=== PATIENT | female | born 1950 | race Caucasian/White ===

== ENCOUNTER 2016-07-27 17:16 | Emergency (ER) | payer BC ==
[~2016-07-27] VITALS: Ht 160 cm; Wt 97.7 kg
[~2016-07-27 17:16] MED LIST: DARV100T; FERR325T; FOLI1TAB; HUMARA; LEVO25TA2; MOBIC; PERC5TAB8; QUINAPRIL/HCTZ; VITAMIN D50000 UNT; ZOLOFT
[2016-07-27 17:17] VITALS: BP 98/60
[2016-07-27] MEDS ORDERED: LEVO50TA5 PO (17:30)
[2016-07-27] MEDS ORDERED: BUPR150T5 PO (17:30)
[2016-07-27] MEDS ORDERED: QUIN20TA PO (17:30)
[2016-07-27] MEDS ORDERED: BISO2.5T PO (17:30)
[2016-07-27] MEDS ORDERED: VITA100041 PO (17:30)
[2016-07-27] MEDS ORDERED: ZOLO100T PO (17:30)
[2016-07-27] MEDS ORDERED: HYDR-3713 PO (17:30)
[2016-07-27] MEDS ORDERED: INDO50CA PO (18:42)
[2016-07-27] MEDS ORDERED: PRED10TA PO (18:42)
[2016-07-27] MEDS ORDERED: predniSONE 20 MG TAB PO ONE (18:45)
[2016-07-27] MEDS ORDERED: INDOMETHACIN 25 MG CAP PO ONE (18:45)
== END 2016-07-27 19:18 | disposition home or self-care (01) ==
LOC: M ED 19:11
DX: M25.511 Pain in right shoulder (principal); G89.29 Other chronic pain; E03.9 Hypothyroidism, unspecified; Z79.899 Other long term (current) drug therapy; Z88.2 Allergy status to sulfonamides

== ENCOUNTER 2017-12-05 16:01 | Inpatient (IN) | payer OTHER, BC ==
[2017-12-05] MEDS ORDERED: ISOVUE-370 76% 100ML VIAL (Q9967) As Ordered (17:59)
[2017-12-05] MEDS: ONDANSETRON 4MG/2ML VIAL (J2405) IV ×2 (18:00→18:17)
[2017-12-05 18:03] LABS: BASO % 0.3 % (0.0-1.0); EOS # 0.1 10^3/uL (0.0-0.50); EOS % 0.6 % (0.0-3.0); HEMATOCRIT 37.3 % (36.0-47.0); HEMOGLOBIN 12.2 g/dl (12.0-15.5); IMMATURE GRANULOCYTE % 0.6 % (0-3.0); LYMPH # 3.5 10^3/uL (1.5-4.5); LYMPH % 22.1 % (24.0-44.0); MEAN CORPUSCULAR HEMOGLOBIN 32.4 pg (27.0-33.0); MEAN CORPUSCULAR HGB CONC 32.7 g/dl (32.0-36.5); MEAN CORPUSCULAR VOLUME 98.9 fl (80.0-96.0); MONO # 1.3 10^3/uL (0.0-0.8); MONO % 8.4 % (0.0-5.0); NEUTROPHILS # 10.8 10^3/uL (1.8-7.7); PLATELET COUNT, AUTOMATED 291 10^3/uL (150-450); RED BLOOD COUNT 3.77 10^6/uL (4.00-5.40); RED CELL DISTRIBUTION WIDTH 14.7 % (11.5-14.5); WHITE BLOOD COUNT 15.8 10^3/uL (4.0-10.0)
[2017-12-05 18:15] LABS: INR 0.94; PROTHROMBIN TIME 12.7 SECONDS (12.1-14.4)
[2017-12-05] MEDS ORDERED: MORPHINE 2 MG/ML 1ML SYRINGE (J2270) IV (18:15)
[2017-12-05 18:16] LABS: PARTIAL THROMBOPLASTIN TIME 26.3 SECONDS (25.4-37.6)
[2017-12-05] MEDS: MORPHINE 4 MG/ML 1ML VIAL/SYRINGE (J2270) IV (18:18)
[2017-12-05] MEDS: MORPHINE 2 MG/ML 1ML SYRINGE (J2270) IV (18:25)
[2017-12-05] MEDS: NS 1,000 ML IV (18:25)
[2017-12-05 18:27] LABS: ABG BASE EXCESS -3.1 (-2.0-2.0); ABG O2 SATURATION 92.1 % (95.0-99.0); ABG PARTIAL PRESSURE CO2 39.5 mmHg (35.0-45.0); ABG PARTIAL PRESSURE O2 66.8 mmHg (75.0-100.0); ABG STANDARD HCO3 21.8 MEQ/L (22.0-26.0); ABG TOTAL CO2 23.2 MEQ/L (23.0-31.0); ABG pH (ARTERIAL) 7.364 UNITS (7.350-7.450); ALBUMIN 4.3 GM/DL (3.2-5.2); ALKALINE PHOSPHATASE 110 U/L (45-117); ALT/SGPT 45 U/L (12-78); AMYLASE 20 U/L (25-115); ANION GAP 10 MEQ/L (8-16); AST/SGOT 25 U/L (7-37); BILIRUBIN,DIRECT 0.2 MG/DL (0.0-0.2); BILIRUBIN,TOTAL 0.5 MG/DL (0.2-1.0); BLOOD UREA NITROGEN 30 MG/DL (7-18); CALCIUM LEVEL 9.3 MG/DL (8.8-10.2); CARBON DIOXIDE LEVEL 26 MEQ/L (21-32); CHLORIDE LEVEL 101 MEQ/L (98-107); CPK CREATINE PHOSPHOKINASE 122 U/L (26-192); CREATININE FOR GFR 1.41 MG/DL (0.55-1.30); GLOMERULAR FILTRATION RATE 39.6 (>45); GLUCOSE, FASTING 130 MG/DL (70-100); LIPASE 70 U/L (73-393); MB/CK RELATIVE INDEX 1.56 (< OR =4); POTASSIUM SERUM 3.8 MEQ/L (3.5-5.1); SODIUM LEVEL 137 MEQ/L (136-145); TOTAL PROTEIN 8.2 GM/DL (6.4-8.2); TROPONIN I < 0.02 NG/ML (< 0.10)
[2017-12-05 18:50] LABS: LACTIC ACID SEPSIS PROTOCOL 1.4 MMOL/L (0.4-2.0)
[2017-12-05] MEDS ORDERED: LIDOCAINE 1% MDV 20ML VIAL As Ordered (19:05)
[2017-12-05] MEDS ORDERED: FLUMAZENIL 0.5 MG/5 ML VIAL As Ordered (19:05)
[2017-12-05] MEDS ORDERED: MIDAZOLAM INJ 2 MG/2 ML VIAL (J2250) As Ordered ×3 (19:06)
[2017-12-05] MEDS: MIDAZOLAM INJ 2 MG/2 ML VIAL (J2250) IV ×2 (19:15→19:17)
[2017-12-05] MEDS: KCL 20MEQ IN D5/NS 1000ML 1,000 ML IV ×2 (19:31→20:00)
[2017-12-05] MEDS ORDERED: LEVALBUTEROL 1.25 MG/0.5 ML CONCENTRATE NEB NEB (19:45)
[2017-12-05] MEDS ORDERED: ACETAMINOPHEN TAB 650MG DOSE (2X325MG) PO (19:45)
[2017-12-05] MEDS ORDERED: ONDANSETRON 4MG/2ML VIAL (J2405) IV (19:45)
[2017-12-05] MEDS ORDERED: BISACODYL 10 MG SUPP PR (19:45)
[2017-12-05] MEDS: HEPARIN SOD (PORCINE) 5000 UNITS/ML VIAL SC (20:45)
[2017-12-05] MEDS: PERCOCET 5MG/325MG TAB PO (20:46)
[2017-12-05] MEDS: DOCUSATE SODIUM 100 MG CAP PO (20:55)
[2017-12-05] MEDS: GABAPENTIN 100 MG CAP PO (21:52)
[2017-12-05] MEDS: buPROPion **SR TABLET** (ZYBAN) 150MG PO (21:52)
[2017-12-05] MEDS: LEVALBUTEROL 1.25 MG/0.5 ML CONCENTRATE NEB NEB (21:56)
[2017-12-06] MEDS: PERCOCET 5MG/325MG TAB PO ×6 (00:35→20:29)
[2017-12-06] MEDS: LEVALBUTEROL 1.25 MG/0.5 ML CONCENTRATE NEB NEB ×4 (02:00→19:53)
[2017-12-06 04:16] LABS: BASO % 0.3 % (0.0-1.0); EOS # 0.1 10^3/uL (0.0-0.50); EOS % 1.5 % (0.0-3.0); HEMATOCRIT 31.8 % (36.0-47.0); HEMOGLOBIN 10.4 g/dl (12.0-15.5); IMMATURE GRANULOCYTE % 0.5 % (0-3.0); LYMPH # 2.6 10^3/uL (1.5-4.5); LYMPH % 29.6 % (24.0-44.0); MEAN CORPUSCULAR HEMOGLOBIN 32.1 pg (27.0-33.0); MEAN CORPUSCULAR HGB CONC 32.7 g/dl (32.0-36.5); MEAN CORPUSCULAR VOLUME 98.1 fl (80.0-96.0); MONO # 0.8 10^3/uL (0.0-0.8); MONO % 9.4 % (0.0-5.0); NEUTROPHILS # 5.2 10^3/uL (1.8-7.7); NEUTROPHILS % 58.7 % (36.0-66.0); PLATELET COUNT, AUTOMATED 211 10^3/uL (150-450); RED BLOOD COUNT 3.24 10^6/uL (4.00-5.40); RED CELL DISTRIBUTION WIDTH 14.5 % (11.5-14.5); WHITE BLOOD COUNT 8.8 10^3/uL (4.0-10.0)
[2017-12-06 04:38] LABS: ANION GAP 9 MEQ/L (8-16); BLOOD UREA NITROGEN 22 MG/DL (7-18); CALCIUM LEVEL 8.5 MG/DL (8.8-10.2); CARBON DIOXIDE LEVEL 26 MEQ/L (21-32); CHLORIDE LEVEL 104 MEQ/L (98-107); CREATININE FOR GFR 0.95 MG/DL (0.55-1.30); GLOMERULAR FILTRATION RATE > 60.0 (>45); GLUCOSE, FASTING 124 MG/DL (70-100); POTASSIUM SERUM 3.2 MEQ/L (3.5-5.1); SODIUM LEVEL 139 MEQ/L (136-145)
[2017-12-06] MEDS: LEVOTHYROXINE 50MCG TABLET (0.05MG) PO (05:06)
[2017-12-06 05:54] LABS: ABG BASE EXCESS 1.4 (-2.0-2.0); ABG HCO3 26.7 MEQ/L (22.0-26.0); ABG O2 SATURATION 97.1 % (95.0-99.0); ABG PARTIAL PRESSURE CO2 45.5 mmHg (35.0-45.0); ABG STANDARD HCO3 25.7 MEQ/L (22.0-26.0); ABG TOTAL CO2 28.1 MEQ/L (23.0-31.0); ABG pH (ARTERIAL) 7.387 UNITS (7.350-7.450)
[2017-12-06] MEDS: PANTOPRAZOLE 40MG TAB (PROTONIX) PO (08:27)
[2017-12-06] MEDS: ATORVASTATIN 10 MG TAB PO (08:27)
[2017-12-06] MEDS: DOCUSATE SODIUM 100 MG CAP PO ×2 (08:29→20:27)
[2017-12-06] MEDS: buPROPion **SR TABLET** (ZYBAN) 150MG PO ×2 (08:30→20:27)
[2017-12-06] MEDS: HEPARIN SOD (PORCINE) 5000 UNITS/ML VIAL SC ×2 (08:30→20:28)
[2017-12-06] MEDS: MOM 30ML SUSPENSION UDC PO (08:30)
[2017-12-06] MEDS: GABAPENTIN 100 MG CAP PO ×3 (08:30→20:27)
[2017-12-06] MEDS: BISOPROLOL FUM 2.5 MG PER 1/2TAB PO (08:30)
[2017-12-06] MEDS: VITAMIN D 1,000 INTERNATIONAL UNITS TABLET PO (08:30)
[2017-12-06] MEDS: KCL 20MEQ IN D5/NS 1000ML 1,000 ML IV (09:20)
[2017-12-06] MEDS: NORCO, ANEXSIA 5/325MG TABLET (HYDROcodone/ACETAMINOPHEN) PO ×3 (11:11→18:03)
[2017-12-06] MEDS: KETOROLAC 30 MG/ML VIAL (J1885) IV ×3 (11:15→22:47)
[2017-12-06] MEDS: POTASSIUM CHLORIDE 10 MEQ SR TABLET PO ×3 (13:40→20:28)
[2017-12-06] MEDS: HYDROCHLOROthiazide 6.25MG PER 1/4TAB PO (13:40)
[2017-12-06 16:15] LABS: APPEARANCE, URINE CLEAR (CLEAR); BACTERIA, URINE AUTO NEGATIVE (NEGATIVE); BILIRUBIN, URINE AUTO NEGATIVE (NEGATIVE); BLOOD, URINE BLOOD NEGATIVE (NEGATIVE); COLOR, URINE YELLOW (YELLOW); GLUCOSE, URINE (UA) AUTO NEGATIVE (NEGATIVE); KETONE, URINE AUTO NEGATIVE (NEGATIVE); LEUKOCYTE ESTERASE, URINE AUTO NEGATIVE (NEGATIVE); NITRITE, URINE AUTO NEGATIVE (NEGATIVE); PROTEIN, URINE AUTO NEGATIVE (NEGATIVE); RBC, URINE AUTO 0 /HPF (0-3); SPECIFIC GRAVITY URINE AUTO 1.025 (1.002-1.035); SQUAMOUS EPITHELIAL CELL UR AU 0 /HPF (0-6); UROBILINOGEN, URINE AUTO 0.2 mg/dL (0.0-2.0); WBC, URINE AUTO 1 /HPF (0-3)
[2017-12-07] MEDS: LEVALBUTEROL 1.25 MG/0.5 ML CONCENTRATE NEB NEB ×4 (01:18→20:00)
[2017-12-07] MEDS: LEVOTHYROXINE 50MCG TABLET (0.05MG) PO (05:07)
[2017-12-07] MEDS: KETOROLAC 30 MG/ML VIAL (J1885) IV (05:08)
[2017-12-07] MEDS: PERCOCET 5MG/325MG TAB PO ×6 (05:08→21:50)
[2017-12-07 05:27] LABS: BASO # 0.1 10^3/uL (0.0-0.2); BASO % 0.4 % (0.0-1.0); EOS # 0.2 10^3/uL (0.0-0.50); EOS % 1.9 % (0.0-3.0); HEMATOCRIT 34.7 % (36.0-47.0); HEMOGLOBIN 10.6 g/dl (12.0-15.5); IMMATURE GRANULOCYTE % 0.4 % (0-3.0); LYMPH # 2.3 10^3/uL (1.5-4.5); LYMPH % 19.4 % (24.0-44.0); MEAN CORPUSCULAR HEMOGLOBIN 32.4 pg (27.0-33.0); MEAN CORPUSCULAR HGB CONC 30.5 g/dl (32.0-36.5); MEAN CORPUSCULAR VOLUME 106.1 fl (80.0-96.0); MONO # 1.3 10^3/uL (0.0-0.8); MONO % 10.9 % (0.0-5.0); NEUTROPHILS # 7.9 10^3/uL (1.8-7.7); PLATELET COUNT, AUTOMATED 186 10^3/uL (150-450); RED BLOOD COUNT 3.27 10^6/uL (4.00-5.40); RED CELL DISTRIBUTION WIDTH 14.7 % (11.5-14.5); WHITE BLOOD COUNT 11.8 10^3/uL (4.0-10.0)
[2017-12-07 05:56] LABS: ANION GAP 7 MEQ/L (8-16); BLOOD UREA NITROGEN 28 MG/DL (7-18); CALCIUM LEVEL 8.6 MG/DL (8.8-10.2); CARBON DIOXIDE LEVEL 24 MEQ/L (21-32); CHLORIDE LEVEL 108 MEQ/L (98-107); CREATININE FOR GFR 1.29 MG/DL (0.55-1.30); GLOMERULAR FILTRATION RATE 43.9 (>45); GLUCOSE, FASTING 108 MG/DL (70-100); SODIUM LEVEL 139 MEQ/L (136-145)
[2017-12-07] MEDS: HEPARIN SOD (PORCINE) 5000 UNITS/ML VIAL SC ×2 (08:49→21:50)
[2017-12-07] MEDS: MOM 30ML SUSPENSION UDC PO (08:49)
[2017-12-07] MEDS: DOCUSATE SODIUM 100 MG CAP PO ×2 (08:50→21:49)
[2017-12-07] MEDS: VITAMIN D 1,000 INTERNATIONAL UNITS TABLET PO (08:50)
[2017-12-07] MEDS: ATORVASTATIN 10 MG TAB PO (08:50)
[2017-12-07] MEDS: buPROPion **SR TABLET** (ZYBAN) 150MG PO ×2 (08:50→21:49)
[2017-12-07] MEDS: GABAPENTIN 100 MG CAP PO ×3 (08:50→21:49)
[2017-12-07] MEDS: POTASSIUM CHLORIDE 10 MEQ SR TABLET PO ×3 (08:50→21:49)
[2017-12-07] MEDS: BISOPROLOL FUM 2.5 MG PER 1/2TAB PO (08:51)
[2017-12-07] MEDS: HYDROCHLOROthiazide 6.25MG PER 1/4TAB PO (08:51)
[2017-12-07] MEDS: PANTOPRAZOLE 40MG TAB (PROTONIX) PO (08:51)
[2017-12-07] MEDS: DULoxetine 30 MG CAP (CYMBALTA) PO (12:38)
[2017-12-07] MEDS ORDERED: DULoxetine 30 MG CAP (CYMBALTA) PO (21:00)
[2017-12-08] MEDS: LEVALBUTEROL 1.25 MG/0.5 ML CONCENTRATE NEB NEB ×4 (01:42→19:57)
[2017-12-08] MEDS: PERCOCET 5MG/325MG TAB PO ×6 (02:00→23:40)
[2017-12-08 05:03] LABS: BASO % 0.3 % (0.0-1.0); EOS # 0.3 10^3/uL (0.0-0.50); EOS % 2.3 % (0.0-3.0); HEMATOCRIT 30.1 % (36.0-47.0); HEMOGLOBIN 9.7 g/dl (12.0-15.5); IMMATURE GRANULOCYTE % 0.3 % (0-3.0); LYMPH # 2.6 10^3/uL (1.5-4.5); LYMPH % 22.4 % (24.0-44.0); MEAN CORPUSCULAR HEMOGLOBIN 31.8 pg (27.0-33.0); MEAN CORPUSCULAR HGB CONC 32.2 g/dl (32.0-36.5); MEAN CORPUSCULAR VOLUME 98.7 fl (80.0-96.0); MONO # 0.9 10^3/uL (0.0-0.8); MONO % 7.7 % (0.0-5.0); NEUTROPHILS # 7.7 10^3/uL (1.8-7.7); PLATELET COUNT, AUTOMATED 199 10^3/uL (150-450); RED BLOOD COUNT 3.05 10^6/uL (4.00-5.40); RED CELL DISTRIBUTION WIDTH 14.6 % (11.5-14.5); WHITE BLOOD COUNT 11.4 10^3/uL (4.0-10.0)
[2017-12-08 05:32] LABS: ANION GAP 6 MEQ/L (8-16); BLOOD UREA NITROGEN 24 MG/DL (7-18); CALCIUM LEVEL 8.4 MG/DL (8.8-10.2); CARBON DIOXIDE LEVEL 27 MEQ/L (21-32); CHLORIDE LEVEL 105 MEQ/L (98-107); CREATININE FOR GFR 0.85 MG/DL (0.55-1.30); GLOMERULAR FILTRATION RATE > 60.0 (>45); GLUCOSE, FASTING 113 MG/DL (70-100); POTASSIUM SERUM 4.2 MEQ/L (3.5-5.1); SODIUM LEVEL 138 MEQ/L (136-145)
[2017-12-08] MEDS: LEVOTHYROXINE 50MCG TABLET (0.05MG) PO (06:01)
[2017-12-08 06:14] LABS: GOLD SPEC TUBE RECIEVED
[2017-12-08] MEDS: GABAPENTIN 100 MG CAP PO ×3 (08:07→20:21)
[2017-12-08] MEDS: ATORVASTATIN 10 MG TAB PO (08:07)
[2017-12-08] MEDS: NORCO, ANEXSIA 5/325MG TABLET (HYDROcodone/ACETAMINOPHEN) PO ×3 (08:07→20:22)
[2017-12-08] MEDS: VITAMIN D 1,000 INTERNATIONAL UNITS TABLET PO (08:07)
[2017-12-08] MEDS: DOCUSATE SODIUM 100 MG CAP PO ×2 (08:07→20:22)
[2017-12-08] MEDS: DULoxetine 30 MG CAP (CYMBALTA) PO (08:08)
[2017-12-08] MEDS: buPROPion **SR TABLET** (ZYBAN) 150MG PO ×2 (08:08→20:25)
[2017-12-08] MEDS: HYDROCHLOROthiazide 6.25MG PER 1/4TAB PO (08:08)
[2017-12-08] MEDS: POTASSIUM CHLORIDE 10 MEQ SR TABLET PO (08:08)
[2017-12-08] MEDS: HEPARIN SOD (PORCINE) 5000 UNITS/ML VIAL SC ×2 (08:08→20:22)
[2017-12-08] MEDS: PANTOPRAZOLE 40MG TAB (PROTONIX) PO (08:09)
[2017-12-08] MEDS: MOM 30ML SUSPENSION UDC PO (08:09)
[2017-12-08] MEDS: BISOPROLOL FUM 2.5 MG PER 1/2TAB PO (08:15)
[2017-12-08] MEDS: KETOROLAC 30 MG/ML VIAL (J1885) IV ×3 (09:55→23:40)
[2017-12-08] MEDS: fentaNYL 25 MCG/HR PATCH TOP (14:52)
[2017-12-08] MEDS: METHOTREXATE 2.5 MG TAB (J8610 PER 2.5MG) PO (15:10)
[2017-12-09] MEDS: LEVALBUTEROL 1.25 MG/0.5 ML CONCENTRATE NEB NEB ×2 (01:34→07:43)
[2017-12-09] MEDS: KETOROLAC 30 MG/ML VIAL (J1885) IV ×2 (04:19→11:02)
[2017-12-09] MEDS: PERCOCET 5MG/325MG TAB PO ×2 (04:19→08:21)
[2017-12-09 04:57] LABS: BASO % 0.5 % (0.0-1.0); EOS # 0.3 10^3/uL (0.0-0.50); EOS % 3.2 % (0.0-3.0); HEMATOCRIT 30.7 % (36.0-47.0); HEMOGLOBIN 9.7 g/dl (12.0-15.5); IMMATURE GRANULOCYTE % 0.6 % (0-3.0); LYMPH # 2.3 10^3/uL (1.5-4.5); LYMPH % 25.5 % (24.0-44.0); MEAN CORPUSCULAR HEMOGLOBIN 32.1 pg (27.0-33.0); MEAN CORPUSCULAR HGB CONC 31.6 g/dl (32.0-36.5); MEAN CORPUSCULAR VOLUME 101.7 fl (80.0-96.0); MONO # 0.7 10^3/uL (0.0-0.8); MONO % 8.3 % (0.0-5.0); NEUTROPHILS # 5.5 10^3/uL (1.8-7.7); NEUTROPHILS % 61.9 % (36.0-66.0); PLATELET COUNT, AUTOMATED 204 10^3/uL (150-450); RED BLOOD COUNT 3.02 10^6/uL (4.00-5.40); RED CELL DISTRIBUTION WIDTH 14.5 % (11.5-14.5); WHITE BLOOD COUNT 8.9 10^3/uL (4.0-10.0)
[2017-12-09 05:25] LABS: ANION GAP 8 MEQ/L (8-16); BLOOD UREA NITROGEN 23 MG/DL (7-18); CALCIUM LEVEL 8.2 MG/DL (8.8-10.2); CARBON DIOXIDE LEVEL 24 MEQ/L (21-32); CHLORIDE LEVEL 103 MEQ/L (98-107); CREATININE FOR GFR 0.99 MG/DL (0.55-1.30); GLOMERULAR FILTRATION RATE 59.6 (>45); GLUCOSE, FASTING 104 MG/DL (70-100); POTASSIUM SERUM 4.5 MEQ/L (3.5-5.1); SODIUM LEVEL 135 MEQ/L (136-145)
[2017-12-09] MEDS: LEVOTHYROXINE 50MCG TABLET (0.05MG) PO (06:40)
[2017-12-09] MEDS: NORCO, ANEXSIA 5/325MG TABLET (HYDROcodone/ACETAMINOPHEN) PO ×2 (06:41→11:03)
[2017-12-09] MEDS: MOM 30ML SUSPENSION UDC PO (08:18)
[2017-12-09] MEDS: HYDROCHLOROthiazide 6.25MG PER 1/4TAB PO (08:21)
[2017-12-09] MEDS: BISOPROLOL FUM 2.5 MG PER 1/2TAB PO (08:21)
[2017-12-09] MEDS: DULoxetine 30 MG CAP (CYMBALTA) PO (08:22)
[2017-12-09] MEDS: GABAPENTIN 100 MG CAP PO (08:22)
[2017-12-09] MEDS: ATORVASTATIN 10 MG TAB PO (08:22)
[2017-12-09] MEDS: DOCUSATE SODIUM 100 MG CAP PO (08:22)
[2017-12-09] MEDS: PANTOPRAZOLE 40MG TAB (PROTONIX) PO (08:22)
[2017-12-09] MEDS: VITAMIN D 1,000 INTERNATIONAL UNITS TABLET PO (08:22)
[2017-12-09] MEDS: HEPARIN SOD (PORCINE) 5000 UNITS/ML VIAL SC (08:22)
[2017-12-09] MEDS: buPROPion **SR TABLET** (ZYBAN) 150MG PO (08:22)
[2017-12-09] MEDS ORDERED: ENTER DRUG NAME HERE (PATIENT'S OWN MED) SQ (09:00)
[2017-12-11] MEDS ORDERED: FENTANYL REMOVAL DOCUMENTATION MISC XX (14:00)
== END 2017-12-09 12:36 | disposition home or self-care (01) | DRG 135 ==
LOC: M ED 16:01 → M ED INP 19:31 → M ICU 20:30
PROVIDERS: Thoracic Surgery (Cardiothoracic Vascular Surgery)
PROC: 0W9930Z Drainage of Right Pleural Cavity with Drainage Device, Percutaneous Approach (ICD-10-PCS; principal; 2017-12-05)
DX: S27.0XXA Traumatic pneumothorax, initial encounter (principal); N17.9 Acute kidney failure, unspecified; S22.41XA Multiple fractures of ribs, right side, initial encounter for closed fracture; E86.0 Dehydration; F32.9 Major depressive disorder, single episode, unspecified; M54.5 Low back pain; E03.9 Hypothyroidism, unspecified; W10.9XXA Fall (on) (from) unspecified stairs and steps, initial encounter; Y92.89 Other specified places as the place of occurrence of the external cause; Z79.899 Other long term (current) drug therapy; I10 Essential (primary) hypertension

== ENCOUNTER → 2017-12-16 | Outpatient (CLI) | payer BC | LOC: M SMT 09:26 | DX: J93.83 Other pneumothorax (principal) | CPT/HCPCS: 71046 ==

== ENCOUNTER → 2019-08-31 | Outpatient (CLI) | payer BC ==
[~2019-08-31] MED LIST changes: +ATOR1TAB19 PO; +BISO2.5T PO; +BUPR150T5 PO; +DULO1CAP5 PO; +DULO1CAP6 PO; +DURA25DI3 TOP; +GABA-1171 PO; +HUMI40KI SC; +HYDR-3713 PO; +INDO50CA91 PO; +LEVO50TA5 PO; +PERCOCET PO; +PRED10TA2 PO; +QUIN20TA16 PO; +VITA-182 PO; +ZOLO100T PO
== END ==
LOC: M LABSMTC 12:41
PROVIDERS: ATTEND Orthopaedic Surgery
DX: Z11.59 Encounter for screening for other viral diseases (principal)
CPT/HCPCS: C9803; U0003

== ENCOUNTER → 2024-04-05 | Outpatient (CLI) | payer BC, MEDICARE ==
[~2024-04-05] MED LIST changes: +AMLO1TAB25 PO; +BISO1TAB17 PO; +BUPR-71 PO; -BUPR150T5 PO; +CLOBETASOL TOP; +DICL100G10 TOP; +HYDR-3719 PO; +LEVO75TA4 PO; +LISI20TA37 PO; +TALT80IN7 PO; +VITA100093 PO; +ZALE10CA PO
[2024-04-05 19:05] LABS: HEMATOCRIT 40.3 % (36.0-47.0); HEMOGLOBIN 12.8 g/dl (12.0-15.5); MEAN CORPUSCULAR HEMOGLOBIN 30.8 pg (27.0-33.0); MEAN CORPUSCULAR HGB CONC 31.8 g/dl (32.0-36.5); MEAN CORPUSCULAR VOLUME 97.1 fl (80.0-96.0); PLATELET COUNT, AUTOMATED 255 10^3/uL (150-450); RED BLOOD COUNT 4.15 10^6/uL (4.00-5.40)
[2024-04-05 19:41] LABS: ALBUMIN 4.1 G/DL (3.2-5.2); BILIRUBIN,TOTAL 0.5 MG/DL (0.3-1.2); CHOLESTEROL RISK RATIO 2.32 (<5); CREATININE FOR GFR 1.05 MG/DL (0.55-1.30); GLOMERULAR FILTRATION RATE 54.7 (>39); HDL CHOLESTEROL 77.9 MG/DL (>40); LDL CHOLESTEROL 82.5 MG/DL (<100); NON-HDL-C 103.1 MG/DL; POTASSIUM SERUM 4.5 MMOL/L (3.5-5.1); TOTAL PROTEIN 8.1 G/DL (5.7-8.2)
[2024-04-05 19:43] LABS: THYROID STIMULATING HORMONE 1.846 uIU/ML (0.55-4.78)
== END ==
LOC: M WUC 15:32
PROVIDERS: ATTEND Physician Assistant
DX: I10 Essential (primary) hypertension (principal); E78.5 Hyperlipidemia, unspecified; E03.9 Hypothyroidism, unspecified; M25.512 Pain in left shoulder